=== PATIENT | female | born 1965 | race Caucasian/White ===

== ENCOUNTER 2020-10-18 17:17 | Emergency (ER) | payer OTHER ==
[~2020-10-18] VITALS: Ht 170.2 cm; Wt 79.4 kg
[2020-10-18] MEDS: IV NS 0.9% 1,000 ML BAG IV ONE (17:30)
[2020-10-18 18:23] LABS: BASOPHILS # (AUTO) 0.1 K/uL (0.0-0.2); BASOPHILS % (AUTO) 0.6 % (0.0-2.0); EOSINOPHILS % (AUTO) 3.9 % (0.0-6.0); HEMATOCRIT 41 % (33-45); HEMOGLOBIN 13.8 g/dL (11.5-14.8); LYMPHOCYTES % (AUTO) 23.3 % (20.0-44.0); MEAN CORPUSCULAR HGB CONC 34 g/dl (31.0-36.0); MEAN CORPUSCULAR VOLUME 91 fL (82-100); MONOCYTES # (AUTO) 0.9 K/uL (0.1-1.30); MONOCYTES % (AUTO) 10.6 % (2.0-12.0); NEUTROPHILS # (AUTO) 5.4 K/uL (1.8-8.9); NEUTROPHILS % (AUTO) 61.6 % (43.0-81.0); PLATELET COUNT (AUTO) 255 K/uL (150-450); RED BLOOD CELL COUNT(AUTO) 4.51 MIL/uL (4.0-5.2); WHITE BLOOD COUNT (AUTO) 8.7 K/uL (4.3-11.0)
[2020-10-18 18:33] LABS: CALCIUM, SERUM 8.3 mg/dL (8.5-10.1); CARBON DIOXIDE 21 mmol/L (21-32); CHLORIDE 109 mmol/L (98-107); CREATININE 0.5 mg/dL (0.6-1.3); GLUCOSE 93 mg/dL (74-106); POTASSIUM 4.1 mmol/L (3.5-5.1); SODIUM SERUM 141 mmol/L (136-145); UREA NITROGEN, BLOOD 13 mg/dL (7-18)
--- NOTE | 2020-10-18 18:34 | NUR ---
Called ER to have changed from PRE-ER to regular ER 1800hrs Wrong name on order, called ER to have fixed 1835hrs jm
[2020-10-18 18:39] LABS: ALANINE AMINOTRANSFERASE 11 U/L (12-78); ALBUMIN 3.2 g/dL (3.4-5.0); ALKALINE PHOSPHATASE 93 U/L (46-116); ASPARTATE AMINOTRANSFERASE 16 U/L (15-37); BILIRUBIN,DIRECT 0.1 mg/dL (0.0-0.2); BILIRUBIN,TOTAL 0.4 mg/dL (0.2-1.0); TOTAL PROTEIN, SERUM 6.9 g/dL (6.4-8.2)
[2020-10-18] MEDS ORDERED: IOHEXOL-300 100 ML VIAL IV ONE (18:59)
[2020-10-18] MEDS ORDERED: IV NS 0.9% 250 ML IV ONE (18:59)
[2020-10-18] MEDS ORDERED: CT SWABBABLE VALVE TRANS SET 1 EA INFUS.SET MC ONE (18:59)
--- NOTE | 2020-10-18 19:29 | NUR ---
DAUGHTER CALLED ASKING [facility] STAFF TO NOT RELEASE PT'S INFO TO ANYONE OTHER THAN HERSELF.
--- NOTE | 2020-10-18 19:30 | NUR ---
Raymond segura in ED - 10/18/20 at 1936 by KELYB RECEVIED REPORT FROM DAY SHIFT FOR [facility]. PATIENT VSS, WILL CONTINUE TO MONITOR.
--- NOTE | 2020-10-18 19:30 | NUR ---
RECEVIED REPORT FROM DAY SHIFT FOR [facility]. PATIENT VSS, WILL CONTINUE TO MONITOR.
--- NOTE | 2020-10-18 20:01 | NUR ---
Patient discharged to home in stable condition. Written and verbal after care instructions given. Patient verbalizes understanding of instruction.
[2020-10-18 20:26] VITALS: BP 116/81
== END 2020-10-18 20:02 | disposition home or self-care (01) ==
LOC: EDBD 17:17 → ER 18:55
DX: G89.18 Other acute postprocedural pain (principal); R55 Syncope and collapse; Z90.710 Acquired absence of both cervix and uterus
CPT/HCPCS: 36415; 74177; 80048; 80076; 84484; 85025; 93005; 96360; 99285; J7030; J7050; Q9967